=== PATIENT | female | born 1995 | race Caucasian/White ===

== ENCOUNTER → 2018-08-12 | Outpatient (CLI) | payer OTHER ==
--- NOTE | 2018-08-12 10:59 | US ---
EXAMINATION TYPE: US pelvic complete DATE OF EXAM: 08/12/2018 COMPARISON: US 2015 CLINICAL HISTORY: Z97.5 Presence of (intrauterine) contraceptive dev. IUD placement, irregular cycles , intermittent cramping, 2, para 2, history of 2 c-sections TECHNIQUE: . Transabdominal sonographic images of the pelvis were acquired. Transvaginal sonographi c images were medically necessary to better assess the following anatomy: IUD placement, retroverted uterus Date of LMP: 07/25/2018 EXAM MEASUREMENTS: Uterus: 7.7 x 4.0 x 5.4 cm Endometrial Stripe: 0.7 cm Right Ovary: 3.1 x 1.3 x 1.6 cm Left Ovary: 4.3 x 1.8 x 2.3 cm 1. Uterus: retroverted, heterogeneous 2. Endometrium: wnl, IUD appears within correct placement 3. Right Ovary: wnl 4. Left Ovary: wnl 5. Bilateral Adnexa: wnl 6. Posterior cul-de-sac: small amount of free fluid IMPRESSION: 1. IUD within the endometrial canal. 2. No suspicious acute changes
== END ==
LOC: RADUSWWP 10:17
PROVIDERS: ATTEND Obstetrics & Gynecology
DX: Z30.431 Encounter for routine checking of intrauterine contraceptive device (principal); Z97.5 Presence of (intrauterine) contraceptive device
CPT/HCPCS: 76830; 76856

== ENCOUNTER → 2019-05-03 | Outpatient (CLI) | payer OTHER ==
--- NOTE | 2019-05-03 14:42 | US ---
EXAMINATION TYPE: US pelvis complete transvag DATE OF EXAM: 05/03/2019 COMPARISON: NONE CLINICAL HISTORY: T83.32XA Displacement of IUD. TECHNIQUE: Transvaginal (TV) and Transabdominal (TA) . Transabdominal sonographic images of the pel vis were acquired. Transvaginal sonographic images were medically necessary to better assess the fol lowing anatomy: uterus Date of LMP: 04/14/19 EXAM MEASUREMENTS: Uterus: 6.4 x 4.7 x 3.2 cm Endometrial Stripe: 0.2 cm Right Ovary: 3.2 x 1.9 x 2.0 cm Left Ovary: 3.0 x 1.3 x 2.8 cm 1. Uterus: Retroverted wnl, IUD appears in proper position 2. Endometrium: 0.2 3. Right Ovary: wnl 4. Left Ovary: wnl 5. Bilateral Adnexa: wnl 6. Posterior cul-de-sac: wnl Small volume free fluid appears simple. IMPRESSION: Centrally placed intrauterine device is seen bridging the upper and lower uterine segment s. Incidentally noted small volume free fluid is present, likely physiologic in nature.
== END | disposition home or self-care (01) ==
LOC: RADUSWWP 13:54
PROVIDERS: ATTEND Family Medicine
DX: T83.32XA Displacement of intrauterine contraceptive device, initial encounter (principal); Z88.9 Allergy status to unspecified drugs, medicaments and biological substances
CPT/HCPCS: 76830; 76856

== ENCOUNTER → 2020-02-25 | Outpatient (CLI) | payer OTHER ==
--- NOTE | 2020-02-26 10:37 | US ---
EXAMINATION TYPE: US transvaginal DATE OF EXAM: 02/25/2020 COMPARISON: CLINICAL HISTORY: Z97.5 Check IUD placement. Patient states she tried to get IUD removed and it was u nsuccessful. TECHNIQUE: Transvaginal (TV). Date of LMP: 02/20/2020, EXAM MEASUREMENTS: Uterus: 7.2 x 5.3 x 4.0 cm Endometrial Stripe: 0.2 cm Right Ovary: 3.3 x 1.4 x 1.5 cm Left Ovary: 3.2 x 1.4 x 1.4 cm 1. Uterus: Retroverted Peripheral vascular flow seen. 2. Endometrium: IUD visualized within endometrium canal 3. Right Ovary: follicles seen 4. Left Ovary: follicles seen 5. Bilateral Adnexa: wnl 6. Posterior cul-de-sac: no free fluid Cervix- IUD strings visualized closer to internal os/YEHUDA than to the external os/vagina IMPRESSION: 1. IUD as noted. 2. Small ovarian follicles noted bilaterally.
== END | disposition home or self-care (01) ==
LOC: RADUSWWP 15:29
PROVIDERS: ATTEND Obstetrics & Gynecology
DX: Z30.431 Encounter for routine checking of intrauterine contraceptive device (principal)
CPT/HCPCS: 76830

== ENCOUNTER 2020-03-15 11:08 | Day surgery (SDC) | payer OTHER ==
[2020-03-13 09:19] VITALS: BMI 30.4
--- NOTE | 2020-03-15 08:26 | P.HPOB ---
History of Present Illness H&P Date: 03/15/20 Chief Complaint: Retained IUD 24-year-old presents for D&C hysteroscopy removal of IUD. Review of Systems All systems: negative Constitutional: Denies chills, Denies fever Eyes: denies blurred vision, denies pain Ears, nose, mouth and throat: Denies headache, Denies sore throat Cardiovascular: Denies chest pain, Denies shortness of breath Respiratory: Denies cough Gastrointestinal: Denies abdominal pain, Denies diarrhea, Denies nausea, Denies vomiting Genitourinary: Denies dysuria, Denies hematuria Musculoskeletal: Denies myalgias Integumentary: Denies pruritus, Denies rash Neurological: Denies numbness, Denies weakness Psychiatric: Denies anxiety, Denies depression Endocrine: Denies fatigue, Denies weight change Past Medical History Past Medical History: GERD/Reflux Additional Past Medical History / Comment(s): Obstetric history: 2 normal vaginal deliveries History of Any Multi-Drug Resistant Organisms: None Reported Past Surgical History: Section Additional Past Surgical History / Comment(s): C SECTION X2 Past Anesthesia/Blood Transfusion Reactions: No Reported Reaction Smoking Status: Former smoker - Past Family History Mother Family Medical History: No Reported History Medications and Allergies Home Medications Medication Instructions Recorded Confirmed Type ALPRAZolam [Xanax] 0.25 mg PO BID PRN #10 tab 02/02/15 03/13/20 Rx Cyclobenzaprine [Flexeril] 10 mg PO TID PRN 03/13/20 03/13/20 History Allergies Allergy/AdvReac Type Severity Reaction Status Date / Time No Known Allergies Allergy Verified 03/13/20 08:55 Exam Osteopathic Statement: *. No significant issues noted on an osteopathic structural exam other than those noted in the History and Physical/Consult. Heart: Regular rate and rhythm Lungs: Clear to auscultation bilaterally Abdomen: Soft, nontender Extremities: Negative Homans sign Assessment and Plan (1) IUD strings lost Status: Acute Code(s): T83.32XA - DISPLACEMENT OF INTRAUTERINE CONTRACEPTIVE DEVICE, INIT SNOMED Code(s): 810841972 Plan: 1. D&C, hysteroscopy, removal of IUD
[~2020-03-15 11:08] MED LIST: HYDROmorphone 0.5 MG/0.5 ML SYRINGE IVP PRN; LACTATED RINGERS 1,000 ML IV SCH; Pre Op ABX Message 1 EACH MISC MISCELLANE ONE
[2020-03-15 11:21] VITALS: RESP 16
[2020-03-15] MEDS ORDERED: ONDANSETRON 4 MG/2 ML VIAL ONE (12:09)
[2020-03-15] MEDS ORDERED: DEXAMETHASONE SOD PHOSPHATE 10 MG/ML 1 ML VIAL IV ONE (12:11)
[2020-03-15] MEDS ORDERED: ONDANSETRON 4 MG/2 ML VIAL IVP ONE (12:12)
[2020-03-15] MEDS ORDERED: MIDAZOLAM 2 MG/2 ML VIAL ONE (12:48)
[2020-03-15] MEDS ORDERED: KETOROLAC 30 MG/ML 1 ML VIAL ONE (12:48)
[2020-03-15] MEDS ORDERED: PROPOFOL 10 MG/ML 20 ML VIAL IV ONE (12:48)
[2020-03-15] MEDS ORDERED: LIDOCAINE 1% INJ 10MG/ML (20 ML MDV) ONE (12:48)
[2020-03-15] MEDS ORDERED: fentaNYL (PF) 50 MCG/ML 2 ML AMP ONE (12:48)
[2020-03-15 13:23] VITALS: TEMP 98.5
--- NOTE | 2020-03-15 13:23 | P.OP ---
Date of Procedure: 03/15/20 Preoperative Diagnosis: 1. IUD strings lost Postoperative Diagnosis: 1. IUD strings lost Procedure(s) Performed: Dilation with hysteroscopy and removal of IUD Anesthesia: MAC Surgeon: Yeimi Mccabe Estimated Blood Loss (ml): 1 IV fluids (ml): 200 Urine output (ml): 50 Pathology: none sent Condition: stable Disposition: PACU Description of Procedure: Patient is taken the operating room and general anesthesia was obtained without difficulty. She is prepped draped in normal sterile fashion dorsal lithotomy position, legs placed in candycane stirrups. Bladder was drained of all urine. Weighted speculum place in vagina and anterior lip the cervix was grasped with single-tooth tenaculum. Hysteroscopy was performed and the IUD strings were seen in the inner aspect of the cervix up to the lower uterine segment and the IUD was visualized. Cervix was slightly dilated and then polyp forceps were used to grasp and easily removed IUD. Hysteroscopy was again performed both ostia visualized and smooth contour of the uterus. Patient to our procedure well, sponge and instrument counts correct 2. She was taken to recovery in stable condition.
[2020-03-15 14:08] VITALS: BP 116/82; PULSE 74
== END 2020-03-15 14:31 | disposition home or self-care (01) ==
LOC: OR 11:08
PROVIDERS: ATTEND Obstetrics & Gynecology
DX: T83.32XA Displacement of intrauterine contraceptive device, initial encounter (principal); K21.9 Gastro-esophageal reflux disease without esophagitis; F17.210 Nicotine dependence, cigarettes, uncomplicated; F41.9 Anxiety disorder, unspecified; Z98.890 Other specified postprocedural states
CPT/HCPCS: 81025; 58579; J2250; J1100; J2405; J2001; J3010; J1885; J2704

== ENCOUNTER 2020-09-21 09:13 | Emergency (ER) | payer OTHER ==
[2020-09-21 09:17] VITALS: BP 132/89; PULSE 91; RESP 20; TEMP 97.2
--- NOTE | 2020-09-21 09:58 | ED ---
General Adult HPI - General Chief complaint: Anxiety Stated complaint: Anxiety Time Seen by Provider: 09/21/20 09:24 Source: patient Mode of arrival: EMS Limitations: no limitations - History of Present Illness Initial comments: Dictation was produced using [employer] dictation software. please excuse any grammatical, word or spelling errors. This patient was cared for during a federal and state declared state of emergency secondary to Covid 19 Chief Complaint: 24-year-old female past medical history of anxiety disorder presents with anxiety reaction today. History of Present Illness: 24-year-old female she has outpatient history of anxiety. She is Xanax regularly for her anxiety disorder. She has as prescribed by her primary care physician. Patient states that today she had a anxiety reaction while at work. She states that she does not know exactly what triggered it. She was brought into the emergency department by EMS. Patient states she is feeling much better since being in the emergency department. An is no other complaints at this time. She does not want any treatment. The ROS documented in this emergency department record has been reviewed and confirmed by me. Those systems with pertinent positive or negative responses have been documented in the HPI. All other systems are other negative and/or noncontributory. PHYSICAL EXAM: General Impression: Alert and oriented x3, not in acute distress HEENT: Normocephalic atraumatic, extra-ocular movements intact, pupils equal and reactive to light bilaterally, mucous membranes moist. Cardiovascular: Heart regular rate and rhythm Chest: Able to complete full sentences, no retractions, no tachypnea Abdomen: abdomen soft, non-tender, non-distended, no organomegaly Musculoskeletal: Pulses present and equal in all extremities, no peripheral edema Motor: no focal deficits noted Neurological: CN II-XII grossly intact, no focal motor or sensory deficits noted Skin: Intact with no visualized rashes Psych: Normal affect and mood ED course: 24 y Old female with clinical presentation consistent with anxiety reaction while at work today. Signs upon arrival are within acceptable limits. test is negative. Patient does not want any treatment for her anxiety reaction. She would prefer to be discharged. Patient observed in the emergency department for approximately one hour in stable medical condition. Patient has an appointment with her PCP tomorrow. She states she'll follow-up. - Related Data Home Medications Medication Instructions Recorded Confirmed Cyclobenzaprine [Flexeril] 10 mg PO TID PRN 08/17/20 08/19/20 Previous Rx's Medication Instructions Recorded ALPRAZolam [Xanax] 0.25 mg PO BID PRN #10 tab 02/02/15 Ibuprofen [Motrin] 600 mg PO Q6HR PRN #30 tab 03/15/20 Allergies Allergy/AdvReac Type Severity Reaction Status Date / Time No Known Allergies Allergy Verified 09/21/20 09:18 Review of Systems ROS Statement: Those systems with pertinent positive or pertinent negative responses have been documented in the HPI. ROS Other: All systems not noted in ROS Statement are negative. Past Medical History Past Medical History: GERD/Reflux Additional Past Medical History / Comment(s): Obstetric history: 2 normal vaginal deliveries History of Any Multi-Drug Resistant Organisms: None Reported Past Surgical History: Section Additional Past Surgical History / Comment(s): C SECTION X2 , D&C 2020 Past Anesthesia/Blood Transfusion Reactions: No Reported Reaction Past Psychological History: Anxiety, Depression Smoking Status: Current some day smoker Past Alcohol Use History: None Reported Past Drug Use History: None Reported - Past Family History Mother Family Medical History: No Reported History General Exam Limitations: no limitations Course Vital Signs 09/21/20 09:14 Temperature 97.2 F L Pulse Rate 91 Respiratory 20 Rate Blood Pressure 132/89 O2 Sat by Pulse 98 Oximetry Medical Decision Making - Lab Data Lab Results 09/21/20 Range/Units 09:33 Urine HCG, Qual Not Detected (Not Detectd) Disposition Clinical Impression: Acute anxiety Disposition: HOME SELF-CARE Condition: Good Instructions (If sedation given, give patient instructions): Generalized Anxiety Disorder (ED) Is patient prescribed a controlled substance at d/c from ED?: No Referrals: Ricardo Haywood MD [Primary Care Provider] - 1-2 days Time of Disposition: 09:58
== END 2020-09-21 10:02 | disposition home or self-care (01) ==
LOC: EC 09:13
DX: F41.9 Anxiety disorder, unspecified (principal)
CPT/HCPCS: 81025; 99284

== ENCOUNTER 2020-11-11 20:36 | Emergency (ER) | payer OTHER ==
[2020-11-11 20:48] VITALS: BP 112/78; PULSE 88; RESP 18; TEMP 97.7
[2020-11-11 21:13] LABS: Appearance,Urine Clear (Clear); Bacteria,Urine Rare /hpf; Bilirubin,Urine Negative (Negative); Blood,Urine Large (Negative); Color,Urine Light Yellow; Glucose,Urine (UA) Negative (Negative); Ketones,Urine Negative (Negative); Leukocyte Esterase,Urine Negative (Negative); Nitrite,Urine Negative (Negative); PH, Urine 6.5 (5.0-8.0); Protein,Urine Negative (Negative); RBC,Urine 37 /hpf (0-5); Squamous Epithelial Cell,Urine 3 /hpf (0-4); Urobilinogen,Urine <2.0 mg/dL (<2.0); WBC,Urine 2 /hpf (0-5)
[2020-11-11 21:27] LABS: Basophils % (A) 0 %; Eosinophils # (A) 0.1 k/uL (0-0.7); Eosinophils % (A) 1 %; HCT 38.1 % (34.0-46.0); Lymphocytes % (A) 28 %; MCH 33.6 pg (25.0-35.0); MCHC 36.7 g/dL (31.0-37.0); MCV 91.5 fL (80.0-100.0); Monocytes # (A) 0.8 k/uL (0-1.0); Monocytes % (A) 8 %; Neutrophils # (A) 6.5 k/uL (1.3-7.7); Neutrophils % (A) 62 %; Platelet Count 193 k/uL (150-450); RBC 4.16 m/uL (3.80-5.40); RDW 11.8 % (11.5-15.5); WBC 10.5 k/uL (3.8-10.6)
[2020-11-11 21:38] LABS: ALT 27 U/L (4-34); AST 21 U/L (14-36); African American GFR (CKD) >90 (>60 ml/min/1.73 sqM); Albumin 4.1 g/dL (3.5-5.0); Alkaline Phosphatase 82 U/L (38-126); Anion Gap 8 mmol/L; Blood Urea Nitrogen 9 mg/dL (7-17); Calcium 9.2 mg/dL (8.4-10.2); Carbon Dioxide 22 mmol/L (22-30); Chloride 107 mmol/L (98-107); Glucose 90 mg/dL (74-99); Non-African American GFR(CKD) >90 (>60 ml/min/1.73 sqM); Sodium 137 mmol/L (137-145); Total Bilirubin 0.4 mg/dL (0.2-1.3); Total Protein 6.8 g/dL (6.3-8.2)
[2020-11-11 22:23] LABS: HCG,Quantitative Serum 34614.6 mIU/mL
[2020-11-11] MEDS ORDERED: ACETAMINOPHEN TAB 325 MG TAB PO STA (22:29)
--- NOTE | 2020-11-11 22:41 | US ---
EXAMINATION TYPE: Transabdominal DATE OF EXAM: 11/11/2020 10:10 PM COMPARISON: NONE CLINICAL HISTORY: pain. Pelvic pain, cramping and vaginal bleeding today; ; smoker; C section x 2 ; patient denies heavy pushing,pulling or lifting, stated intercourse 2 days ago. EXAM PERFORMED: Transabdominal (TA) EXAM MEASUREMENTS: GESTATIONAL AGE / DATING Physician Established: Not yet established Dates by LMP: (10 weeks/3 days) EDC: 06/06/2021 Dates by First Scan: No previous US here Dates by Current Scan for: (7 weeks/ 1 day) EDC: 06/29/2021 MATERNAL ANATOMY Uterus: 12.3 x 7.5 x 4.9cm Right Ovary: 2.4 x1.6 x 1.2cm Left Ovary: 4.7 x 5.4 x 4.9cm, enlarged ovary; corpus luteum of seen with peripheral ring o f color flow. Post CDS / Adnexa: wnl Presence of free fluid: no Presence of corpus luteal cyst: left ovary = 4.1 x 4.5 x 4.0cm Presence of subchorionic bleed: yes, noted as hypoechoic area = 1.4 x 2.9 x 2.4cm and is located infe rior to gestational sac. GESTATION / SURVEY CRL: 1.0cm (7 weeks/1 day) Yolk Sac (normal less than 6mm): 3.5mm Heart Rate: 123 bpm Rhythm: Normal IUP: Single IUP noted Date of LMP: 08/30/2020 Beta HcG (if available): NA Single, live IUP,7 weeks/ 1 day, EDC: 06/29/2021, [id number]; presence of subchorionic bleed noted as hypoechoic area = 1.4 x 2.9 x 2.4cm and is located inferior to gestational sac. IMPRESSION: There is subchorionic fluid collection in the uterus inferiorly consistent with pan Gestational hem orrhage.
--- NOTE | 2020-11-11 23:53 | ED ---
Female Urogenital HPI - General Chief complaint: Vaginal Bleeding Stated complaint: Vaginal Bleeding, 10 weeks Source: patient Mode of arrival: ambulatory Limitations: no limitations - History of Present Illness Initial comments: Patient is a 24-year-old female who presents to the emergency department approximately 10 weeks . She states that earlier this week she began having some cramping. She called her OB and they told her to go to [facility] where an ultrasound was performed. It demonstrated an intrauterine with a normal heart tone. She was not having any bleeding at that time. She follows with Dr. Mccabe. States that this evening the patient began having bright red bleeding. States that she was saturating a pad an hour. Patient continues to have abdominal cramping. No abnormal vaginal discharge. No known abdominal trauma. She does not know her blood type. No other alleviating, precipitating or modifying factors Last Menstrual Period: 08/30/20 - Related Data Home Medications Medication Instructions Recorded Confirmed Cyclobenzaprine [Flexeril] 10 mg PO TID PRN 03/13/20 03/15/20 Previous Rx's Medication Instructions Recorded ALPRAZolam [Xanax] 0.25 mg PO BID PRN #10 tab 02/02/15 Ibuprofen [Motrin] 600 mg PO Q6HR PRN #30 tab 03/15/20 Allergies Allergy/AdvReac Type Severity Reaction Status Date / Time No Known Allergies Allergy Verified 11/11/20 20:48 Review of Systems ROS Statement: Those systems with pertinent positive or pertinent negative responses have been documented in the HPI. ROS Other: All systems not noted in ROS Statement are negative. Past Medical History Past Medical History: GERD/Reflux Additional Past Medical History / Comment(s): Obstetric history: 2 normal vaginal deliveries History of Any Multi-Drug Resistant Organisms: None Reported Past Surgical History: Section Additional Past Surgical History / Comment(s): C SECTION X2 , D&C 2020 Past Anesthesia/Blood Transfusion Reactions: No Reported Reaction Past Psychological History: Anxiety, Depression Smoking Status: Current some day smoker Past Alcohol Use History: None Reported Past Drug Use History: None Reported - Past Family History Mother Family Medical History: No Reported History General Exam Limitations: no limitations General appearance: alert, in no apparent distress Head exam: Present: atraumatic, normocephalic, normal inspection Eye exam: Present: normal appearance, PERRL, EOMI. Absent: scleral icterus, conjunctival injection, periorbital swelling ENT exam: Present: normal exam, mucous membranes moist Neck exam: Present: normal inspection. Absent: tenderness, meningismus, lymphadenopathy Respiratory exam: Present: normal lung sounds bilaterally. Absent: respiratory distress, wheezes, rales, rhonchi, stridor Cardiovascular Exam: Present: regular rate, normal rhythm, normal heart sounds. Absent: systolic murmur, diastolic murmur, rubs, gallop, clicks GI/Abdominal exam: Present: soft, normal bowel sounds. Absent: distended, tenderness, guarding, rebound, rigid Extremities exam: Present: normal inspection, full ROM, normal capillary refill. Absent: tenderness, pedal edema, joint swelling, calf tenderness Back exam: Present: normal inspection Neurological exam: Present: alert, oriented X3, CN II-XII intact Psychiatric exam: Present: normal affect, normal mood Skin exam: Present: warm, dry, intact, normal color. Absent: rash Course Vital Signs 11/11/20 20:44 Temperature 97.7 F Pulse Rate 88 Respiratory 18 Rate Blood Pressure 112/78 O2 Sat by Pulse 99 Oximetry Medical Decision Making - Medical Decision Making Upon arrival the patient is placed into room 13. There are history of physical exam was performed. Patient given Tylenol for headache. Laboratory studies were conducted. Hemoglobin 14. Beta Quant 34,614. Blood type is A+. Ultrasound is performed which demonstrates a single live intrauterine 7 weeks 1 day. Estimated date of arrival is June 29. Heart rate 123. Presence of subchorionic bleeding noted. Pelvic exam is performed which demonstrates only mild bleeding. Cervix is closed. Results are discussed the patient. At this time I did recommend pelvic rest. 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 Return to the emergency room for any worsening bleeding or cramping. Patient understood this. Given written and verbal discharge instructions and discharged home in stable condition - Lab Data Result diagrams: 11/11/20 21:18 11/11/20 21:18 Lab Results 11/11/20 11/11/20 11/11/20 Range/Units 21:06 21:18 21:18 WBC 10.5 (3.8-10.6) k/uL RBC 4.16 (3.80-5.40) m/uL Hgb 14.0 (11.4-16.0) gm/dL Hct 38.1 (34.0-46.0) % MCV 91.5 (80.0-100.0) fL MCH 33.6 (25.0-35.0) pg MCHC 36.7 (31.0-37.0) g/dL RDW 11.8 (11.5-15.5) % Plt Count 193 (150-450) k/uL MPV 8.0 Neutrophils % 62 % Lymphocytes % 28 % Monocytes % 8 % Eosinophils % 1 % Basophils % 0 % Neutrophils # 6.5 (1.3-7.7) k/uL Lymphocytes # 3.0 (1.0-4.8) k/uL Monocytes # 0.8 (0-1.0) k/uL Eosinophils # 0.1 (0-0.7) k/uL Basophils # 0.0 (0-0.2) k/uL Sodium 137 (137-145) mmol/L Potassium 4.0 (3.5-5.1) mmol/L Chloride 107 (98-107) mmol/L Carbon Dioxide 22 (22-30) mmol/L Anion Gap 8 mmol/L BUN 9 (7-17) mg/dL Creatinine 0.56 (0.52-1.04) mg/dL Est GFR (CKD-EPI)AfAm >90 (>60 ml/min/1.73 sqM) Est GFR (CKD-EPI)NonAf >90 (>60 ml/min/1.73 sqM) Glucose 90 (74-99) mg/dL Calcium 9.2 (8.4-10.2) mg/dL Total Bilirubin 0.4 (0.2-1.3) mg/dL AST 21 (14-36) U/L ALT 27 (4-34) U/L Alkaline Phosphatase 82 (38-126) U/L Total Protein 6.8 (6.3-8.2) g/dL Albumin 4.1 (3.5-5.0) g/dL HCG, Quant 20232.6 mIU/mL Urine Color Light Yellow Urine Appearance Clear (Clear) Urine pH 6.5 (5.0-8.0) Ur Specific [place] 1.000 L (1.001-1.035) Urine Protein Negative (Negative) Urine Glucose (UA) Negative (Negative) Urine Ketones Negative (Negative) Urine Blood Large H (Negative) Urine Nitrite Negative (Negative) Urine Bilirubin Negative (Negative) Urine Urobilinogen <2.0 (<2.0) mg/dL Ur Leukocyte Esterase Negative (Negative) Urine RBC 37 H (0-5) /hpf Urine WBC 2 (0-5) /hpf Ur Squamous Epith Cells 3 (0-4) /hpf Urine Bacteria Rare H (None) /hpf Blood Type Blood Type Recheck Bld Type Recheck Status 11/11/20 Range/Units 21:18 WBC (3.8-10.6) k/uL RBC (3.80-5.40) m/uL Hgb (11.4-16.0) gm/dL Hct (34.0-46.0) % MCV (80.0-100.0) fL MCH (25.0-35.0) pg MCHC (31.0-37.0) g/dL RDW (11.5-15.5) % Plt Count (150-450) k/uL MPV Neutrophils % % Lymphocytes % % Monocytes % % Eosinophils % % Basophils % % Neutrophils # (1.3-7.7) k/uL Lymphocytes # (1.0-4.8) k/uL Monocytes # (0-1.0) k/uL Eosinophils # (0-0.7) k/uL Basophils # (0-0.2) k/uL Sodium (137-145) mmol/L Potassium (3.5-5.1) mmol/L Chloride (98-107) mmol/L Carbon Dioxide (22-30) mmol/L Anion Gap mmol/L BUN (7-17) mg/dL Creatinine (0.52-1.04) mg/dL Est GFR (CKD-EPI)AfAm (>60 ml/min/1.73 sqM) Est GFR (CKD-EPI)NonAf (>60 ml/min/1.73 sqM) Glucose (74-99) mg/dL Calcium (8.4-10.2) mg/dL Total Bilirubin (0.2-1.3) mg/dL AST (14-36) U/L ALT (4-34) U/L Alkaline Phosphatase (38-126) U/L Total Protein (6.3-8.2) g/dL Albumin (3.5-5.0) g/dL HCG, Quant mIU/mL Urine Color Urine Appearance (Clear) Urine pH (5.0-8.0) Ur Specific [place] (1.001-1.035) Urine Protein (Negative) Urine Glucose (UA) (Negative) Urine Ketones (Negative) Urine Blood (Negative) Urine Nitrite (Negative) Urine Bilirubin (Negative) Urine Urobilinogen (<2.0) mg/dL Ur Leukocyte Esterase (Negative) Urine RBC (0-5) /hpf Urine WBC (0-5) /hpf Ur Squamous Epith Cells (0-4) /hpf Urine Bacteria (None) /hpf Blood Type A Positive Blood Type Recheck A Pos Bld Type Recheck Status No Disposition Clinical Impression: Vaginal bleeding, Subchorionic bleed, First trimester bleeding Disposition: HOME SELF-CARE Condition: Stable Instructions (If sedation given, give patient instructions): Subchorionic He morrhage (ED) Additional Instructions: Please follow up with Dr. Mccabe next week. You will need a repeat ultrasound. Return to the ED for any new or worsening symptoms. Is patient prescribed a controlled substance at d/c from ED?: No Referrals: Ricardo Haywood MD [Primary Care Provider] - 1-2 days Yeimi Mccabe DO [Doctor of Osteopathic Medicine] - 1-2 days Time of Disposition: 23:55
== END 2020-11-12 00:15 | disposition home or self-care (01) ==
LOC: EC 20:36
DX: O41.8X90 Other specified disorders of amniotic fluid and membranes, unspecified trimester, not applicable or unspecified (principal); O20.9 Hemorrhage in early pregnancy, unspecified; O99.331 Smoking (tobacco) complicating pregnancy, first trimester; F17.200 Nicotine dependence, unspecified, uncomplicated; Z3A.10 10 weeks gestation of pregnancy
CPT/HCPCS: 36415; 76801; 80053; 81001; 84702; 85025; 86900; 86901; 99284

== ENCOUNTER 2020-12-06 17:24 | Emergency (ER) | payer OTHER ==
[2020-12-06 18:12] VITALS: BP 115/80; PULSE 87; RESP 20; TEMP 97.9
[2020-12-06] MEDS ORDERED: SODIUM CHLORIDE 0.9% 1,000 ML IV ONE (19:15)
--- NOTE | 2020-12-06 19:18 | ED ---
General Adult HPI - General Chief complaint: Abdominal Pain Stated complaint: 11 wks preg/pain/bleeding Time Seen by Provider: 12/06/20 19:05 Source: patient, RN notes reviewed Mode of arrival: ambulatory Limitations: no limitations - History of Present Illness Initial comments: 24-year-old female currently 11 weeks presents to the emergency room for a chief complaint of vaginal bleeding. Patient reports she started having vaginal bleeding a few weeks ago and was diagnosed with a subchorionic hemorrhage. Patient reports that in the past 2 days she has had some increased bleeding and has passed some tissue. This probably patient to come to the emergency room. Patient denies lightheadedness. Denies soaking through a pad an hour. Patient states she sees Dr. Mccabe for this . She has slight cramping, no significant abdominal pain. Patient has no other complaints at this time including shortness of breath, chest pain, nausea or vomiting, headache, or visual changes. - Related Data Home Medications Medication Instructions Recorded Confirmed Acetaminophen Tab [Tylenol Tab] 500 mg PO Q6H PRN 12/06/20 12/06/20 Allergies Allergy/AdvReac Type Severity Reaction Status Date / Time No Known Allergies Allergy Verified 12/06/20 21:08 Review of Systems ROS Statement: Those systems with pertinent positive or pertinent negative responses have been documented in the HPI. ROS Other: All systems not noted in ROS Statement are negative. Past Medical History Past Medical History: GERD/Reflux Additional Past Medical History / Comment(s): Obstetric history: 2 normal vaginal deliveries History of Any Multi-Drug Resistant Organisms: None Reported Past Surgical History: Section Additional Past Surgical History / Comment(s): C SECTION X2 , D&C 2020 Past Anesthesia/Blood Transfusion Reactions: No Reported Reaction Past Psychological History: Anxiety, Depression Smoking Status: Current some day smoker Past Alcohol Use History: None Reported Past Drug Use History: None Reported - Past Family History Mother Family Medical History: No Reported History General Exam Limitations: no limitations General appearance: alert, in no apparent distress Head exam: Present: atraumatic, normocephalic, normal inspection Eye exam: Present: normal appearance, PERRL, EOMI. Absent: scleral icterus, conjunctival injection, periorbital swelling ENT exam: Present: normal exam Neck exam: Present: normal inspection Respiratory exam: Present: normal lung sounds bilaterally. Absent: respiratory distress, wheezes, rales, rhonchi, stridor Cardiovascular Exam: Present: regular rate, normal rhythm, normal heart sounds. Absent: systolic murmur, diastolic murmur, rubs, gallop, clicks GI/Abdominal exam: Present: soft, normal bowel sounds. Absent: distended, tenderness, guarding, rebound, rigid External exam: Present: normal external exam. Absent: erythema, swelling, lesions, lacerations, ecchymosis Speculum exam: Present: vaginal bleeding (Slight vaginal bleeding from the cervix noted). Absent: normal speculum exam, erythema, vaginal discharge, cervical discharge, foreign body, tissue, laceration Neurological exam: Present: alert Course Vital Signs 12/06/20 18:09 Temperature 97.9 F Pulse Rate 87 Respiratory 20 Rate Blood Pressure 115/80 O2 Sat by Pulse 100 Oximetry Medical Decision Making - Medical Decision Making Vitals are stable. CBC CMP unremarkable. Urinalysis unremarkable. Pelvic exam did reveal mild vaginal bleeding from the cervix. No tissue in the cervical os. ultrasound did show an empty uterus. Previous ultrasound from November 11 did show an IUP with subchorionic fluid collection. Additionally hCG has decreased from 34,000 to 1000 from that time. Consistent with miscarriage. Patient is stable at this time bleeding is minimal. She can be discharged home to follow up with OB with strict return parameters. - Lab Data Result diagrams: 12/06/20 19:52 12/06/20 19:52 Lab Results 12/06/20 12/06/20 12/06/20 Range/Units 19:52 19:52 19:52 WBC 8.5 (3.8-10.6) k/uL RBC 4.40 (3.80-5.40) m/uL Hgb 14.3 (11.4-16.0) gm/dL Hct 41.2 (34.0-46.0) % MCV 93.6 (80.0-100.0) fL MCH 32.5 (25.0-35.0) pg MCHC 34.7 (31.0-37.0) g/dL RDW 12.0 (11.5-15.5) % Plt Count 181 (150-450) k/uL MPV 8.2 Neutrophils % 60 % Lymphocytes % 30 % Monocytes % 7 % Eosinophils % 2 % Basophils % 1 % Neutrophils # 5.1 (1.3-7.7) k/uL Lymphocytes # 2.5 (1.0-4.8) k/uL Monocytes # 0.6 (0-1.0) k/uL Eosinophils # 0.2 (0-0.7) k/uL Basophils # 0.0 (0-0.2) k/uL Sodium 141 (137-145) mmol/L Potassium 4.1 (3.5-5.1) mmol/L Chloride 107 (98-107) mmol/L Carbon Dioxide 24 (22-30) mmol/L Anion Gap 10 mmol/L BUN 7 (7-17) mg/dL Creatinine 0.60 (0.52-1.04) mg/dL Est GFR (CKD-EPI)AfAm >90 (>60 ml/min/1.73 sqM) Est GFR (CKD-EPI)NonAf >90 (>60 ml/min/1.73 sqM) Glucose 89 (74-99) mg/dL Calcium 9.5 (8.4-10.2) mg/dL Total Bilirubin 0.7 (0.2-1.3) mg/dL AST 22 (14-36) U/L ALT 21 (4-34) U/L Alkaline Phosphatase 83 (38-126) U/L Total Protein 7.7 (6.3-8.2) g/dL Albumin 4.6 (3.5-5.0) g/dL HCG, Quant 1014.1 mIU/mL Urine Color Yellow Urine Appearance Cloudy H (Clear) Urine pH 5.5 (5.0-8.0) Ur Specific [place] 1.028 (1.001-1.035) Urine Protein Trace H (Negative) Urine Glucose (UA) Negative (Negative) Urine Ketones Negative (Negative) Urine Blood Large H (Negative) Urine Nitrite Negative (Negative) Urine Bilirubin Negative (Negative) Urine Urobilinogen <2.0 (<2.0) mg/dL Ur Leukocyte Esterase Small H (Negative) Urine RBC >182 H (0-5) /hpf Urine WBC 1 (0-5) /hpf Ur Squamous Epith Cells 4 (0-4) /hpf Urine Mucus Many H (None) /hpf Blood Type Blood Type Recheck Bld Type Recheck Status 12/06/20 Range/Units 19:52 WBC (3.8-10.6) k/uL RBC (3.80-5.40) m/uL Hgb (11.4-16.0) gm/dL Hct (34.0-46.0) % MCV (80.0-100.0) fL MCH (25.0-35.0) pg MCHC (31.0-37.0) g/dL RDW (11.5-15.5) % Plt Count (150-450) k/uL MPV Neutrophils % % Lymphocytes % % Monocytes % % Eosinophils % % Basophils % % Neutrophils # (1.3-7.7) k/uL Lymphocytes # (1.0-4.8) k/uL Monocytes # (0-1.0) k/uL Eosinophils # (0-0.7) k/uL Basophils # (0-0.2) k/uL Sodium (137-145) mmol/L Potassium (3.5-5.1) mmol/L Chloride (98-107) mmol/L Carbon Dioxide (22-30) mmol/L Anion Gap mmol/L BUN (7-17) mg/dL Creatinine (0.52-1.04) mg/dL Est GFR (CKD-EPI)AfAm (>60 ml/min/1.73 sqM) Est GFR (CKD-EPI)NonAf (>60 ml/min/1.73 sqM) Glucose (74-99) mg/dL Calcium (8.4-10.2) mg/dL Total Bilirubin (0.2-1.3) mg/dL AST (14-36) U/L ALT (4-34) U/L Alkaline Phosphatase (38-126) U/L Total Protein (6.3-8.2) g/dL Albumin (3.5-5.0) g/dL HCG, Quant mIU/mL Urine Color Urine Appearance (Clear) Urine pH (5.0-8.0) Ur Specific [place] (1.001-1.035) Urine Protein (Negative) Urine Glucose (UA) (Negative) Urine Ketones (Negative) Urine Blood (Negative) Urine Nitrite (Negative) Urine Bilirubin (Negative) Urine Urobilinogen (<2.0) mg/dL Ur Leukocyte Esterase (Negative) Urine RBC (0-5) /hpf Urine WBC (0-5) /hpf Ur Squamous Epith Cells (0-4) /hpf Urine Mucus (None) /hpf Blood Type A Positive Blood Type Recheck A Pos Bld Type Recheck Status No Disposition Clinical Impression: Miscarriage Disposition: HOME SELF-CARE Condition: Good Instructions (If sedation given, give patient instructions): Miscarriage (ED) Additional Instructions: Please follow-up with OB. If you start to have worsening bleeding, such as bleeding through a pad an hour or are getting light headed, worsening abdominal pain, or fevers return to the emergency room. Is patient prescribed a controlled substance at d/c from ED?: No Referrals: Ricardo Haywood MD [Primary Care Provider] - 1-2 days Yeimi Mccabe DO [Doctor of Osteopathic Medicine] - 1-2 days Time of Disposition: 21:25
[2020-12-06 20:00] LABS: Basophils % (A) 1 %; Eosinophils # (A) 0.2 k/uL (0-0.7); Eosinophils % (A) 2 %; HCT 41.2 % (34.0-46.0); HGB 14.3 gm/dL (11.4-16.0); Lymphocytes # (A) 2.5 k/uL (1.0-4.8); Lymphocytes % (A) 30 %; MCH 32.5 pg (25.0-35.0); MCHC 34.7 g/dL (31.0-37.0); MCV 93.6 fL (80.0-100.0); Mean Platelet Volume 8.2; Monocytes # (A) 0.6 k/uL (0-1.0); Monocytes % (A) 7 %; Neutrophils # (A) 5.1 k/uL (1.3-7.7); Neutrophils % (A) 60 %; Platelet Count 181 k/uL (150-450); WBC 8.5 k/uL (3.8-10.6)
[2020-12-06 20:08] LABS: ALT 21 U/L (4-34); AST 22 U/L (14-36); African American GFR (CKD) >90 (>60 ml/min/1.73 sqM); Albumin 4.6 g/dL (3.5-5.0); Alkaline Phosphatase 83 U/L (38-126); Anion Gap 10 mmol/L; Appearance,Urine Cloudy (Clear); Bilirubin,Urine Negative (Negative); Blood Urea Nitrogen 7 mg/dL (7-17); Blood,Urine Large (Negative); Calcium 9.5 mg/dL (8.4-10.2); Carbon Dioxide 24 mmol/L (22-30); Chloride 107 mmol/L (98-107); Color,Urine Yellow; Glucose 89 mg/dL (74-99); Glucose,Urine (UA) Negative (Negative); Ketones,Urine Negative (Negative); Leukocyte Esterase,Urine Small (Negative); Mucus,Urine Many /hpf; Nitrite,Urine Negative (Negative); Non-African American GFR(CKD) >90 (>60 ml/min/1.73 sqM); PH, Urine 5.5 (5.0-8.0); Potassium 4.1 mmol/L (3.5-5.1); Protein,Urine Trace (Negative); RBC,Urine >182 /hpf (0-5); Sodium 141 mmol/L (137-145); Specific Gravity,Urine 1.028 (1.001-1.035); Squamous Epithelial Cell,Urine 4 /hpf (0-4); Total Bilirubin 0.7 mg/dL (0.2-1.3); Total Protein 7.7 g/dL (6.3-8.2); Urobilinogen,Urine <2.0 mg/dL (<2.0); WBC,Urine 1 /hpf (0-5)
[2020-12-06 20:25] LABS: HCG,Quantitative Serum 1014.1 mIU/mL
--- NOTE | 2020-12-06 21:13 | US ---
EXAMINATION TYPE: Transabdominal DATE OF EXAM: 12/06/2020 8:50 PM COMPARISON: US CLINICAL HISTORY: pain. Pain and heavy bleeding. Hx 2 C-sections. . EXAM PERFORMED: Transabdominal (TA) EXAM MEASUREMENTS: GESTATIONAL AGE / DATING Physician Established: Not yet established. Dates by LMP: (14 weeks/0 days) EDC: 06/06/2021 Dates by First Scan: (10 weeks/5 days) EDC: 06/29/2021 Dates by Current Scan for: No IUP seen at this time by ultrasound. MATERNAL ANATOMY Uterus: 11.6 x 6.9 x 4.9 cm. Endometrium measures 0.7 cm. Right Ovary: 3.0 x 1.4 x 1.7 cm. Left Ovary: 4.4 x 3.4 x 2.4 cm. Appears slightly enlarged. Anechoic area seen as mentioned below. Post CDS / Adnexa: Appear wnl Presence of free fluid: None seen. Presence of corpus luteal cyst: Possible, within left ovary- anechoic area seen with peripheral vascu larity: 2.8 x 3.0 x 1.9 cm. GESTATION / SURVEY IUP: No IUP seen at this time by ultrasound. Date of LMP: 08/30/2020 Beta HcG (if available): 1,014.1 IMPRESSION: The uterus is empty. No adnexal mass seen to suggest ectopic .
== END 2020-12-06 21:40 | disposition home or self-care (01) ==
LOC: EC 17:24
DX: O03.9 Complete or unspecified spontaneous abortion without complication (principal); O99.332 Smoking (tobacco) complicating pregnancy, second trimester; F17.200 Nicotine dependence, unspecified, uncomplicated; O99.342 Other mental disorders complicating pregnancy, second trimester; F41.9 Anxiety disorder, unspecified; F32.9 Major depressive disorder, single episode, unspecified; O99.612 Diseases of the digestive system complicating pregnancy, second trimester; K21.9 Gastro-esophageal reflux disease without esophagitis; Z3A.11 11 weeks gestation of pregnancy
CPT/HCPCS: 36415; 76801; 80053; 81001; 84702; 85025; 86900; 86901; 96360; 99284

== ENCOUNTER 2021-03-12 15:36 | Emergency (ER) | payer OTHER ==
[2021-03-12 15:48] VITALS: RESP 18; TEMP 97.8
--- NOTE | 2021-03-12 16:16 | ED ---
Female Urogenital HPI - General Chief complaint: Vaginal Bleeding Stated complaint: vaginal bleeding, 6wks Time Seen by Provider: 03/12/21 16:16 Source: patient Mode of arrival: ambulatory Limitations: no limitations - History of Present Illness Initial comments: 25-year-old white female, alert and oriented 4, presents to the emergency room with complaints of 2 hours of vaginal bleeding and right lower quadrant abdominal cramping. She states that she is 6 weeks , her last menstrual period was January 30. She did have a miscarriage, subchorionic hemorrhage on December 06. She is a . She denies any nausea or vomiting or fevers. She is a smoker. MD Complaint: vaginal bleeding -: hour(s) (2) Location: RLQ Radiation: non-radiating Severity scale (1-10): 4 Quality: cramping Improves with: none Worsens with: other Last Menstrual Period: 01/30/21 Patient : Yes Number of weeks : 6 Associated Symptoms: denies other symptoms - Related Data Home Medications Medication Instructions Recorded Confirmed Acetaminophen Tab [Tylenol Tab] 1,000 mg PO DAILY PRN 12/06/20 03/12/21 Pnv No.95/Ferrous Fum/Folic AC 1 tab PO HS 03/12/21 03/12/21 [ Multivitamin Tablet] Previous Rx's Medication Instructions Recorded Nitrofurantoin Monohyd/M-Cryst 100 mg PO Q12HR #14 cap 03/12/21 [Macrobid] Allergies Allergy/AdvReac Type Severity Reaction Status Date / Time No Known Allergies Allergy Verified 03/12/21 18:01 Review of Systems ROS Statement: Those systems with pertinent positive or pertinent negative responses have been documented in the HPI. ROS Other: All systems not noted in ROS Statement are negative. Past Medical History Past Medical History: GERD/Reflux Additional Past Medical History / Comment(s): Obstetric history: 2 normal vaginal deliveries History of Any Multi-Drug Resistant Organisms: None Reported Past Surgical History: Section Additional Past Surgical History / Comment(s): C SECTION X2 , D&C 2020 Past Anesthesia/Blood Transfusion Reactions: No Reported Reaction Past Psychological History: Anxiety, Depression Smoking Status: Current some day smoker Past Alcohol Use History: None Reported Past Drug Use History: None Reported - Past Family History Mother Family Medical History: No Reported History General Exam Limitations: no limitations General appearance: alert, in no apparent distress Head exam: Present: atraumatic, normocephalic, normal inspection Eye exam: Present: normal appearance, PERRL, EOMI. Absent: scleral icterus, conjunctival injection, periorbital swelling Pupils: Present: normal accommodation ENT exam: Present: normal exam, normal oropharynx, mucous membranes dry Neck exam: Present: normal inspection, full ROM. Absent: tenderness, meningismus, lymphadenopathy Respiratory exam: Present: normal lung sounds bilaterally. Absent: respiratory distress, wheezes, rales, rhonchi, stridor, chest wall tenderness, accessory muscle use, decreased breath sounds Cardiovascular Exam: Present: regular rate, normal rhythm, normal heart sounds. Absent: systolic murmur, diastolic murmur, rubs, gallop, clicks GI/Abdominal exam: Present: soft, tenderness, normal bowel sounds. Absent: distended, guarding, rebound, rigid, mass Extremities exam: Present: normal inspection, full ROM, normal capillary refill. Absent: tenderness, pedal edema, joint swelling, calf tenderness Back exam: Present: normal inspection, full ROM. Absent: tenderness, CVA tenderness (R), CVA tenderness (L), muscle spasm, paraspinal tenderness, vertebral tenderness, rash noted Neurological exam: Present: alert, oriented X3, CN II-XII intact Psychiatric exam: Present: normal affect, normal mood Skin exam: Present: warm, dry, intact, normal color. Absent: rash, cyanosis, diaphoretic, erythema, petechiae, pallor, mottled Course Vital Signs 03/12/21 03/12/21 15:44 19:36 Temperature 97.8 F Pulse Rate 89 73 Respiratory 18 18 Rate Blood Pressure 117/79 105/69 O2 Sat by Pulse 98 100 Oximetry Medical Decision Making - Medical Decision Making The beta-hCG measures [address].7. Transvaginal and transabdominal ultrasound showed an intrauterine gestational sac with yolk sac estimated 5 weeks and 6 days but no pole is visible at this time which may relate with early . There is a subchorionic hemorrhage measuring 1.6 x 3.3 x 1.6 cm. patient was treated for urinary tract infection. She will be referred to [facility] for follow- up Dr. Mccabe this week. Return with worsening pain or bleeding. Case discussed with Dr. Maya - Lab Data Result diagrams: 03/12/21 16:33 03/12/21 16:33 Lab Results 03/12/21 03/12/21 03/12/21 Range/Units 16:33 16:33 16:33 WBC 8.6 (3.8-10.6) k/uL RBC 4.74 (3.80-5.40) m/uL Hgb 15.7 (11.4-16.0) gm/dL Hct 45.4 (34.0-46.0) % MCV 95.8 (80.0-100.0) fL MCH 33.1 (25.0-35.0) pg MCHC 34.5 (31.0-37.0) g/dL RDW 12.4 (11.5-15.5) % Plt Count 230 (150-450) k/uL MPV 8.6 Neutrophils % 56 % Lymphocytes % 33 % Monocytes % 7 % Eosinophils % 2 % Basophils % 1 % Neutrophils # 4.8 (1.3-7.7) k/uL Lymphocytes # 2.8 (1.0-4.8) k/uL Monocytes # 0.6 (0-1.0) k/uL Eosinophils # 0.1 (0-0.7) k/uL Basophils # 0.0 (0-0.2) k/uL Sodium 139 (137-145) mmol/L Potassium 4.1 (3.5-5.1) mmol/L Chloride 106 (98-107) mmol/L Carbon Dioxide 22 (22-30) mmol/L Anion Gap 11 mmol/L BUN 5 L (7-17) mg/dL Creatinine 0.50 L (0.52-1.04) mg/dL Est GFR (CKD-EPI)AfAm >90 (>60 ml/min/1.73 sqM) Est GFR (CKD-EPI)NonAf >90 (>60 ml/min/1.73 sqM) Glucose 100 H (74-99) mg/dL Calcium 9.6 (8.4-10.2) mg/dL HCG, Quant 65166.7 mIU/mL Urine Color Red Urine Appearance Cloudy H (Clear) Urine pH 6.5 (5.0-8.0) Ur Specific [place] 1.007 (1.001-1.035) Urine Protein 2+ H (Negative) Urine Glucose (UA) Negative (Negative) Urine Ketones Negative (Negative) Urine Blood Large H (Negative) Urine Nitrite Negative (Negative) Urine Bilirubin Negative (Negative) Urine Urobilinogen <2.0 (<2.0) mg/dL Ur Leukocyte Esterase Moderate H (Negative) Urine RBC >182 H (0-5) /hpf Urine WBC 20 H (0-5) /hpf Ur Squamous Epith Cells 9 H (0-4) /hpf Urine Bacteria Rare H (None) /hpf Disposition Clinical Impression: UTI (urinary tract infection), Vaginal bleeding, Threatened Disposition: HOME SELF-CARE Condition: Good Instructions (If sedation given, give patient instructions): Threatened Miscarriage (ED), Urinary Tract Infection in Women (ED) Additional Instructions: Return if any worsening symptoms, pain or vaginal bleeding. Take antibiotics as prescribed for the urinary tract infection. Follow-up with Dr. Romero your OB /[employer] this week. Prescriptions: Nitrofurantoin Monohyd/M-Cryst [Macrobid] 100 mg PO Q12HR #14 cap Is patient prescribed a controlled substance at d/c from ED?: No Referrals: Ricardo Haywood MD [Primary Care Provider] - 1-2 days Yeimi Mccabe DO [Doctor of Osteopathic Medicine] - 1-2 days Time of Disposition: 19:18
[2021-03-12] MEDS ORDERED: SODIUM CHLORIDE 0.9% 500 ML 500 ML IV STA (16:17)
[2021-03-12 16:40] LABS: Basophils % (A) 1 %; Eosinophils # (A) 0.1 k/uL (0-0.7); Eosinophils % (A) 2 %; HCT 45.4 % (34.0-46.0); HGB 15.7 gm/dL (11.4-16.0); Lymphocytes # (A) 2.8 k/uL (1.0-4.8); Lymphocytes % (A) 33 %; MCH 33.1 pg (25.0-35.0); MCHC 34.5 g/dL (31.0-37.0); MCV 95.8 fL (80.0-100.0); Mean Platelet Volume 8.6; Monocytes # (A) 0.6 k/uL (0-1.0); Monocytes % (A) 7 %; Neutrophils # (A) 4.8 k/uL (1.3-7.7); Neutrophils % (A) 56 %; Platelet Count 230 k/uL (150-450); RBC 4.74 m/uL (3.80-5.40); RDW 12.4 % (11.5-15.5); WBC 8.6 k/uL (3.8-10.6)
[2021-03-12 16:50] LABS: Potassium 4.1 mmol/L (3.5-5.1)
[2021-03-12 16:51] LABS: African American GFR (CKD) >90 (>60 ml/min/1.73 sqM); Anion Gap 11 mmol/L; Blood Urea Nitrogen 5 mg/dL (7-17); Calcium 9.6 mg/dL (8.4-10.2); Carbon Dioxide 22 mmol/L (22-30); Chloride 106 mmol/L (98-107); Glucose 100 mg/dL (74-99); Non-African American GFR(CKD) >90 (>60 ml/min/1.73 sqM); Sodium 139 mmol/L (137-145)
[2021-03-12 16:55] LABS: Appearance,Urine Cloudy (Clear); Bacteria,Urine Rare /hpf; Bilirubin,Urine Negative (Negative); Blood,Urine Large (Negative); Color,Urine Red; Glucose,Urine (UA) Negative (Negative); Ketones,Urine Negative (Negative); Leukocyte Esterase,Urine Moderate (Negative); Nitrite,Urine Negative (Negative); PH, Urine 6.5 (5.0-8.0); Protein,Urine 2+ (Negative); RBC,Urine >182 /hpf (0-5); Specific Gravity,Urine 1.007 (1.001-1.035); Squamous Epithelial Cell,Urine 9 /hpf (0-4); Urobilinogen,Urine <2.0 mg/dL (<2.0); WBC,Urine 20 /hpf (0-5)
[2021-03-12 17:46] LABS: HCG,Quantitative Serum 41258.7 mIU/mL
[2021-03-12] MEDS ORDERED: cefTRIAXone IN SWFI 1,000 MG/10 ML SYRINGE IVP STA (18:10)
--- NOTE | 2021-03-12 19:01 | US ---
EXAM: US First Trimester , Transabdominal and Transvaginal CLINICAL HISTORY: ITS.REASON US Reason: pain bleeding TECHNIQUE: Real-time transabdominal and transvaginal obstetrical ultrasound of the maternal pelvis and a first trimester with image documentation. Transvaginal imaging was used for better evaluation of the fetus and adnexa. COMPARISON: No relevant prior studies available. FINDINGS: Gestation: Intrauterine gestational sac containing yolk sac, without visible pole. Gestational sac measures 1.58 cm, corresponding to 5 weeks 6 days estimated gestational age and sonographic MARY of 11/06/21. Placenta/amniotic fluid: Hypoechoic avascular region seen adjacent to the gestational sac measuring 1.6 x 3.3 x 1.6 cm, likely subchorionic hemorrhage. Uterus/cervix: Retroflexed uterus measures 10.9 x 6.5 x 5.4 cm, without focal myometrial mass. Possible cervical nabothian cysts. Ovaries: Right ovary measures 3.6 x 2.2 x 1.6 cm. Left ovary measures 2.8 x 1.8 x 1.4 cm. Both ovaries demonstrate normal color flow signal. No evidence of torsion or mass. Free fluid: No free pelvic fluid. IMPRESSION: 1. Intrauterine gestational sac containing yolk sac, estimated gestational age 5 weeks 6 days. No pole visible at this time, which may reflect normal early . Correlation with serial quantitative hCG and short interval follow-up ultrasound are recommended. 2. Subchorionic hemorrhage measuring 1.6 x 3.3 x 1.6 cm.
[2021-03-12 19:40] VITALS: BP 105/69; PULSE 73
== END 2021-03-12 19:36 | disposition home or self-care (01) ==
LOC: EC 15:36
DX: O20.0 Threatened abortion (principal); O23.41 Unspecified infection of urinary tract in pregnancy, first trimester; O20.9 Hemorrhage in early pregnancy, unspecified; O99.331 Smoking (tobacco) complicating pregnancy, first trimester; F17.200 Nicotine dependence, unspecified, uncomplicated; Z3A.01 Less than 8 weeks gestation of pregnancy
CPT/HCPCS: 36415; 80048; 85025; 81001; 84702; 87086; 76801; 76817; 96374; 99284; J0696

== ENCOUNTER 2021-04-24 19:41 | Emergency (ER) | payer OTHER ==
[2021-04-24] MEDS ORDERED: ALBUTEROL NEBULIZED 2.5 MG/3 ML INHALATION STA (21:37)
--- NOTE | 2021-04-24 22:04 | XR ---
EXAMINATION TYPE: XR chest 2V DATE OF EXAM: 04/24/2021 COMPARISON: 02/02/2015 HISTORY: Cough TECHNIQUE: 2 views FINDINGS: Heart and mediastinum are normal. Lungs are clear. Diaphragm is normal. Bony thorax appears normal. IMPRESSION: Normal chest. No change.
[2021-04-24 22:17] LABS: Amorphous Sediment,Urine Occasional /hpf; Appearance,Urine Cloudy (Clear); Bacteria,Urine Occasional /hpf; Bilirubin,Urine Negative (Negative); Blood,Urine Negative (Negative); Color,Urine Yellow; Glucose,Urine (UA) Negative (Negative); Ketones,Urine Negative (Negative); Leukocyte Esterase,Urine Negative (Negative); Mucus,Urine Occasional /hpf; Nitrite,Urine Negative (Negative); PH, Urine 6.5 (5.0-8.0); Protein,Urine Negative (Negative); RBC,Urine <1 /hpf (0-5); Specific Gravity,Urine 1.011 (1.001-1.035); Squamous Epithelial Cell,Urine 4 /hpf (0-4); Urobilinogen,Urine <2.0 mg/dL (<2.0); WBC,Urine 1 /hpf (0-5)
--- NOTE | 2021-04-24 22:35 | ED ---
URI HPI - General Chief Complaint: Upper Respiratory Infection Stated Complaint: SOB,Fever Source: patient Mode of arrival: ambulatory Limitations: no limitations - History of Present Illness Initial Comments: A 25-year-old female presents emergency room with cold-like symptoms. States that she has had symptoms for the past 3 days which include fever, shortness of breath, cough. Patient is 12 weeks and therefore states that she cannot take anything for her symptoms. She did have a televist . She was prescribed albuterol and augmentin. Patient states she has yet to fill the prescriptions. She denies chest pain. No history of previous pulmonary disease. No abdominal pain. Denies changes in her bowel or bladder habits. No suprapubic pain. No vaginal bleeding. She is and follows with Dr. Mccabe. She denies covid exposure. No other alleviating, precipitating or modifying factors - Related Data Home Medications Medication Instructions Recorded Confirmed Acetaminophen Tab [Tylenol Tab] 1,000 mg PO DAILY PRN 12/06/20 03/12/21 Pnv No.95/Ferrous Fum/Folic AC 1 tab PO HS 03/12/21 03/12/21 [ Multivitamin Tablet] Previous Rx's Medication Instructions Recorded Nitrofurantoin Monohyd/M-Cryst 100 mg PO Q12HR #14 cap 03/12/21 [Macrobid] Allergies Allergy/AdvReac Type Severity Reaction Status Date / Time No Known Allergies Allergy Verified 04/24/21 20:12 Review of Systems ROS Statement: Those systems with pertinent positive or pertinent negative responses have been documented in the HPI. ROS Other: All systems not noted in ROS Statement are negative. Past Medical History Past Medical History: GERD/Reflux Additional Past Medical History / Comment(s): Obstetric history: 2 normal vag inal deliveries History of Any Multi-Drug Resistant Organisms: None Reported Past Surgical History: Section Additional Past Surgical History / Comment(s): C SECTION X2 , D&C 2020 Past Anesthesia/Blood Transfusion Reactions: No Reported Reaction Past Psychological History: Anxiety, Depression Smoking Status: Current some day smoker Past Alcohol Use History: None Reported Past Drug Use History: None Reported - Past Family History Mother Family Medical History: No Reported History General Exam Limitations: no limitations Course Vital Signs 04/24/21 04/24/21 04/24/21 20:10 22:40 22:47 Temperature 98.2 F Pulse Rate 113 H 70 70 Respiratory 19 Rate Blood Pressure 107/68 O2 Sat by Pulse 96 Oximetry 04/24/21 22:49 Temperature 98.0 F Pulse Rate 71 Respiratory 20 Rate Blood Pressure 112/60 O2 Sat by Pulse 100 Oximetry Medical Decision Making - Medical Decision Making Upon arrival patient is placed into kim bed 11. A thorough history and physical exam is performed. heart tones are obtained and between 150-160. Auscultation of the patient's lungs demonstrates a few beats. Chest x-rays performed which demonstrates no acute intrathoracic findings. Patient is given a DuoNeb breathing treatment. She is swabbed for Covid which is not detected. Urinalysis demonstrates occasional bacteria however no other cells. I did discuss results with the patient. I did recommend treatment with medications such as Benadryl or Claritin, Flonase, albuterol. I instructed her that the Augmentin prescription that she was prescribed would be safe in however I do not feel that it would be effective at this time. Patient is to attempt symptomatic control and only take the antibiotic if symptoms persist greater than 10 days. She is to call her OBGYN to notify them of her symptoms. Return to the ED for any new or worsening symptoms. Patient agree to this, was given written and verbal discharge instructions and discharged home in stable condition - Lab Data Lab Results 04/24/21 04/24/21 Range/Units 20:16 21:50 Urine Color Yellow Urine Appearance Cloudy H (Clear) Urine pH 6.5 (5.0-8.0) Ur Specific [place] 1.011 (1.001-1.035) Urine Protein Negative (Negative) Urine Glucose (UA) Negative (Negative) Urine Ketones Negative (Negative) Urine Blood Negative (Negative) Urine Nitrite Negative (Negative) Urine Bilirubin Negative (Negative) Urine Urobilinogen <2.0 (<2.0) mg/dL Ur Leukocyte Esterase Negative (Negative) Urine RBC <1 (0-5) /hpf Urine WBC 1 (0-5) /hpf Ur Squamous Epith Cells 4 (0-4) /hpf Amorphous Sediment Occasional H (None) /hpf Urine Bacteria Occasional H (None) /hpf Urine Mucus Occasional H (None) /hpf Coronavirus (PCR) Not Detected (Not Detectd) Disposition Clinical Impression: Cough, Nasal congestion Disposition: HOME SELF-CARE Condition: Stable Instructions (If sedation given, give patient instructions): Upper Respiratory Infection (ED) Additional Instructions: Please follow up with your OBGYN. You may take Tylenol, Benadryl, Flonase, Claritin and albuterol safely in . Augmentin is also safe but I would postpone taking it until you have had your symptoms greater than 10 days. Call your OBGYN to make sure they know you are taking these medications. Return to the ED for any new or worsening symptoms. Is patient prescribed a controlled substance at d/c from ED?: No Referrals: Ricardo Haywood MD [Primary Care Provider] - 1-2 days Time of Disposition: 22:34
[2021-04-24 22:51] VITALS: BP 112/60; PULSE 71; RESP 20; TEMP 98
== END 2021-04-24 23:00 | disposition home or self-care (01) ==
LOC: EC 19:41
DX: O26.891 Other specified pregnancy related conditions, first trimester (principal); R05 Cough; R09.81 Nasal congestion; O99.331 Smoking (tobacco) complicating pregnancy, first trimester; F17.200 Nicotine dependence, unspecified, uncomplicated; Z3A.12 12 weeks gestation of pregnancy
CPT/HCPCS: 71046; 81001; 87635; 94640; 99285

== ENCOUNTER → 2023-01-17 | Outpatient (CLI) | payer OTHER ==
--- NOTE | 2023-01-17 15:04 | XR ---
EXAMINATION TYPE: XR shoulder complete RT DATE OF EXAM: 01/17/2023 COMPARISON: NONE HISTORY: Pain TECHNIQUE: Three views are submitted. FINDINGS: The osseous structures are intact. There is no acute fracture or dislocation. The AC joint is maint ained. IMPRESSION: 1. No acute process.
== END | disposition home or self-care (01) ==
LOC: RADXRMAIN 14:42
PROVIDERS: ATTEND Emergency Medicine
DX: S46.911A Strain of unspecified muscle, fascia and tendon at shoulder and upper arm level, right arm, initial encounter (principal); X58.XXXA Exposure to other specified factors, initial encounter

== ENCOUNTER → 2024-01-28 | Outpatient (CLI) | payer OTHER ==
--- NOTE | 2024-01-28 15:35 | CT ---
EXAMINATION TYPE: CT chest wo/w con CT DLP: 521.80 mGycm, Automated exposure control for dose reduction was used. DATE OF EXAM: 01/28/2024 3:30 PM COMPARISON: None. CLINICAL INDICATION:Female, 28 years old with history of R59.00 ENLARGED LYMPHNODES; PHH, Enlarged ax illa lymphnode TECHNIQUE: Multiple axial images were obtained through the chest. Sagittal and coronal reformats were created for review. Contrast used:100ml mL of Isovue 300 with IV Contrast (None if empty) Oral contrast used: (None if empty) FINDINGS: LUNGS/ PLEURA: The lung parenchyma appears unremarkable. AIRWAY: Patent and unremarkable. HEART: Size within normal limits. MEDIASTINUM: No gross evidence of adenopathy. VASCULATURE: No aortic aneurysm. MUSCULOSKELETAL: No acute osseous abnormalities SOFT TISSUES/LYMPH NODES: Unremarkable. LOWER NECK: No significant findings. UPPER ABDOMEN: No significant findings. IMPRESSION: No enlarged axillary lymph nodes visualized. Specifically no greater than 1.0 cm in short axis lymph nodes.
== END | disposition home or self-care (01) ==
LOC: RADCTMAIN 14:56
PROVIDERS: ATTEND Family Medicine
DX: R59.0 Localized enlarged lymph nodes (principal)
CPT/HCPCS: 71270; Q9967

== ENCOUNTER → 2024-04-22 | Outpatient (CLI) | payer OTHER ==
[2024-04-22 14:18] VITALS: BP 137/93; PULSE 84; RESP 16; TEMP 98.1
--- NOTE | 2024-04-22 14:55 | P.GSCN ---
History of Present Illness Consult date: 04/22/24 Reason for Consult: adenopathy Requesting physician: Ricardo Haywood History of present illness: Elvie is a 28 year old female seen in consultation for Dr. Haywood regarding enlarged nodes. She had a bilateral mammogram on 12-03-23 at [facility], and a bilateral breast ultrasound doen on 01-13-24. An enlarged node was seen in both axillax and CT scan was recommended. This was done on 01-28-24 and personally reviewed and interpreted and no nodes of concern were noted. The patient noted that her right breast was heavy, and some white discharge from both breast in November. The discharge lasted several weeks but this seems to have stopped. There is nothing bothering her today regarding any enlarged nodes. She has not had any recent trauma or infection in her breast. Her last child was born approximately 2 years ago, and she did breast-feed. She stopped breast feeding in February of 2022. Caffiene: 12 oz cans of Pepsi/ 4/day nicotine: none chocolate: occasional BCP: used them for 3 years, stopped over 9 years ago, IUD removed in 2019 had that for 5 1/2 years Family History: sister: ovarian cancer at ; delivered and an emergency done and noted to have ovarian cancer; ? if genetic testing done maternal grandmother: breast cancer Hormonal History: menarche: 11 M1, breast fed: yes, age at first : 17 periods regular, LMP: Apr 02, 2024 Surgical history: 3 C-sections D&C Medical History: none Social History: nicotine: used to smoke 1 PPD stopped 1 1/2 years ago alcohol: none drugs: none Review of Systems - Constitutional Reports sweats - EENT Eyes: denies blurred vision Ears: bilateral: tinnitus, deny: decreased hearing Ears, nose, mouth and throat: Denies dysphagia - Breasts bilateral: as per HPI - Cardiovascular Denies chest pain, Denies shortness of breath - Respiratory Denies cough, Denies 7 - Gastrointestinal Gastrointestinal Comment(s): Irritable bowel syndrome Reports as per HPI, Reports constipation, Reports diarrhea - Genitourinary Genitourinary: Denies dysuria, Denies hematuria Menstruation: Reports as per HPI - Musculoskeletal Reports myalgias - Integumentary Reports unusual bruising, Denies rash - Neurological Reports headaches, Denies syncope - Psychiatric Reports anxiety, Reports depression - Endocrine Reports fatigue, Reports weight change - Hematologic/Lymphatic Denies easy bleeding, Denies easy bruising - Allergic/Immunologic Reports seasonal allergies Past Medical History Past Medical History: Asthma, GERD/Reflux, Musculoskeletal Disorder Additional Past Medical History / Comment(s): hx migraines, severe hemorrhoids, rectal bleeding, allergy induced & eosinophilic asthma, lower back pain History of Any Multi-Drug Resistant Organisms: None Reported Past Surgical History: Section, Tubal Ligation Additional Past Surgical History / Comment(s): C SECTION X3 , D&C Past Anesthesia/Blood Transfusion Reactions: Previous Problems w/ Anesthesia Additional Past Anesthesia/Blood Transfusion Reaction / Comm: possibly got fentanyl w/last c/s during the procedure & became very itchy Past Psychological History: Anxiety, Depression Smoking Status: Current every day smoker Past Alcohol Use History: None Reported Additional Past Alcohol Use History / Comment(s): STARTED SMOKING AT AGE 15 SMOKES 5--6 down to 2 cigarettes daily Past Drug Use History: None Reported - Past Family History Mother Family Medical History: No Reported History Medications and Allergies Home Medications Medication Instructions Recorded Confirmed Type Albuterol Sulfate [Proair Hfa] 2 puff INHALATION QID PRN 10/29/21 04/22/24 History Budesonide/Formoterol Fumarate 2 puff INHALATION BID 10/29/21 04/22/24 History [Symbicort 80-4.5 Mcg Inhaler] ALPRAZolam [Xanax] 0.25 mg PO BID PRN 11/15/22 04/22/24 History Cyclobenzaprine [Flexeril] 10 mg PO DIRECTED PRN 11/15/22 04/22/24 History Fexofenadine HCl [Paula Allergy] 180 mg PO DAILY 11/15/22 04/22/24 History Ibuprofen [Motrin] 800 mg PO Q6HR PRN 11/15/22 04/22/24 History Multivitamins, Thera [Multivitamin 1 tab PO DAILY 11/15/22 04/22/24 History (formulary)] Allergies Allergy/AdvReac Type Severity Reaction Status Date / Time No Known Allergies Allergy Verified 04/22/24 14:15 Surgical - Exam Vital Signs Temp Pulse Resp BP Pulse Ox 98.1 F 84 16 137/93 96 04/22/24 14:15 04/22/24 14:15 04/22/24 14:15 04/22/24 14:15 04/22/24 14:15 - General no distress - Eyes normal ocular movement - Neck trachea midline - Respiratory normal respiratory effort, clear to auscultation - Cardiovascular Rhythm: regular Heart Sounds: normal: S1, S2 - Abdomen Abdomen: soft, non tender, no guarding, no rigid, no rebound - Integumentary normal turgor - Neurologic no disoriented, no combative - Musculoskeletal normal gait, normal posture - Psychiatric oriented to time, oriented to person, oriented to place, speech is normal, memory intact Breast Exam: BRA: 34D Inspection: Bilateral grade 2 ptosis Palpation: Right breast: Multi positional exam fibroglandular tissue no dominant masses or nodules of concern, no nipple discharge Right axilla: Shotty adenopathy approximately 1 to 2 cm in size Left breast: Multi positional exam fibroglandular tissue no dominant masses or nodules of concern Left axilla: No adenopathy of concern She has no cervical adenopathy of concern. She has no groin adenopathy of concern. Liver and spleen are not enlarged. Results Bilateral mammogram 12-03-23 /bilateral ultrasound 01-13-24 /CT 01-28-24 scan results reviewed personally and interpreted Assessment and Plan Assessment: Impression: Family history ovarian cancer/sister diagnosed in her 20s Adenopathy greatest right axilla Fibrocystic breast changes white nipple discharge which has stopped at this time Plan: 1. Repeat right axillary ultrasound to reevaluate the lymph node to determine if it is worrisome which would warrant interventional biopsy 2. Consider genetic testing secondary to family history of sister with ovarian cancer 3. Ultrasound of ovaries 4. Follow-up after above done 5. At this time there is nothing in her breast or axilla or any adenopathy which would warrant interventional biopsy
== END ==
LOC: WWCWWP 14:05
PROVIDERS: ATTEND Surgery
DX: R92.8 Other abnormal and inconclusive findings on diagnostic imaging of breast (principal); R59.9 Enlarged lymph nodes, unspecified; N60.11 Diffuse cystic mastopathy of right breast; N60.12 Diffuse cystic mastopathy of left breast; F17.210 Nicotine dependence, cigarettes, uncomplicated; Z80.3 Family history of malignant neoplasm of breast; Z80.41 Family history of malignant neoplasm of ovary

== ENCOUNTER → 2024-05-03 | Outpatient (CLI) | payer OTHER ==
--- NOTE | 2024-05-03 14:00 | USB ---
Reason for Exam: Follow-up at short interval from prior study. Technique: Method: Targeted. Findings: The axilla of the right breast was scanned. There is normal-appearing lymph node within the right axilla measuring 1.2 x 0.7 cm. Cortex measures 0.22 cm. No solid masses identified.. Overall Assessment: Probably benign, BI-RAD 3 Management: Diagnostic Breast Ultrasound of the right breast in 6 months. A clinical breast exam by your physician is recommended on an annual basis and results should be correlated with mammographic findings. This exam should not preclude additional follow-up of suspicious palpable abnormalities. Results were given to the patient verbally at the time of exam. [facility], , 05/03/2024 1:57 PM. Electronically signed and approved by: Casper Muir M.D. Radiologis
== END | disposition home or self-care (01) ==
LOC: RADUSWWP 13:37
PROVIDERS: ATTEND Surgery
DX: N63.0 Unspecified lump in unspecified breast

== ENCOUNTER → 2024-08-24 | Outpatient (CLI) | payer OTHER ==
--- NOTE | 2024-08-24 13:19 | US ---
EXAMINATION TYPE: US pelvic complete DATE OF EXAM: 08/24/2024 COMPARISON: Ultrasound transvaginal 02/25/2020, pelvic ultrasound 05/03/2019, 08/12/2018 CLINICAL INDICATION: Female, 28 years old with history of N94.89 R/O OVARIAN MASS; family hx of ovari an ca sister. TECHNIQUE: Transabdominal (TA). FINDINGS: EXAM MEASUREMENTS: Uterus: 6.7 x 4.2 x 6.4 cm Endometrial Stripe: .8 cm Right Ovary: 2.6 x 1.3 x 1.4 cm Left Ovary: 2.6 x 1.6 x 1.7 cm 1. Uterus: Retroverted wnl 2. Endometrium: wnl 3. Right Ovary: wnl 4. Left Ovary: wnl 5. Bilateral Adnexa: wnl 6. Posterior cul-de-sac: wnl Unremarkable retroverted uterus without focal lesion identified. Normal endometrial thickness. Both o varies appear within normal limits. Dominant follicle within the left ovary. No free fluid. IMPRESSION: Unremarkable pelvic ultrasound. [facility], , 08/24/2024 1:17 PM
== END | disposition home or self-care (01) ==
LOC: RADUSWWP 12:43
PROVIDERS: ATTEND Surgery
DX: N94.89 Other specified conditions associated with female genital organs and menstrual cycle (principal); Z80.41 Family history of malignant neoplasm of ovary
CPT/HCPCS: 76856

== ENCOUNTER → 2024-08-24 | Outpatient (CLI) | payer OTHER ==
--- NOTE | 2024-08-24 13:11 | USB ---
Technique: Method: Targeted. Findings: The axilla of the left breast and the retroareolar of the left breast were scanned. Technique utilized:US breast limited LT Image; Ultrasound imaging of: Area of concern, retroareolar region and axilla. Ductal ectasia, No evidence for organizing fluid collection or mass. Overall Assessment: Benign, BI-RAD 2 Management: Screening Mammogram of both breasts at age 39. A clinical breast exam by your physician is recommended on an annual basis and results should be correlated with mammographic findings. This exam should not preclude additional follow-up of suspicious palpable abnormalities. Results were given to the patient verbally at the time of exam. [facility], , 08/24/2024 1:01 PM. Electronically signed and approved by: Ben Cole DO
== END | disposition home or self-care (01) ==
LOC: RADUSWWP 12:45
PROVIDERS: ATTEND Family Medicine
DX: N64.52 Nipple discharge (principal); N60.42 Mammary duct ectasia of left breast

== ENCOUNTER → 2024-11-18 | Outpatient (CLI) | payer OTHER ==
--- NOTE | 2024-11-18 11:07 | USB ---
Reason for Exam: Follow-up at short interval from prior study. Technique: Method: Targeted. Doppler: Color. Patient Position: LPO. Findings: The periareolar of the right breast, the axilla of the right breast and the retroareolar of the right breast were scanned. Electronically signed and approved by: Casper Muir M.D. Radiologis
== END | disposition home or self-care (01) ==
LOC: RADUSWWP 10:21
PROVIDERS: ATTEND Family Medicine
DX: N60.41 Mammary duct ectasia of right breast (principal)